=== PATIENT | male | born 1980 | race Caucasian/White ===

== ENCOUNTER 2021-04-19 11:16 | Emergency (ER) | payer OTHER, MEDICAID, SELFPAY ==
[2021-04-19] VITALS (48 sets, daily range): BP systolic 107–156; BP diastolic 55–89; PULSE 51–104; RESP 14–26; O2SAT 80–100
--- NOTE | 2021-04-19 11:29 | PC.NURSE ---
Attempted to take vitals on patient. Put CO2 monitor on patient to measure breathing.
--- NOTE | 2021-04-19 11:39 | ED_ITS ---
HPI - Overdose <Payton Leavitt - Last Filed: 04/23/21 02:33> General Chief Complaint: Toxicology Problem Stated Complaint: OD Time Seen by Provider: 04/19/21 11:34 Source: EMS Mode of arrival: EMS Limitations: no limitations History of Present Illness HPI Narrative: This is a 41-year-old male comes emergency department for overdose. Patient received Narcan in the field. We are working on the exact timing but spent least 30 minutes since it was administered. Patient is alert, he is currently oriented to who he is, the year and he is able to ambulate safely. Discussed with patient that he needs to stay here. He admits to Xanax and clonidine. He admitted to medics heroin. He received Narcan x2 and improved. He removed both IVs that the medics and placed EN route. Here he b ecame quite agitated and aggressive and violent with staff. Patient was able to ambulate out with clear speech after discussed multiple times that he needs to be watched for at least an hour to make sure the Narcan does not wear off and he dies. PD was contacted to assist. Patient was return to the department by EMS. He had made it across the street but no further. Patient is alert but quite confused. He continues to be quite agitated and aggressive Related Data Allergies Allergy/AdvReac Type Severity Reaction Status Date / Time No Known Drug Allergies Allergy Verified 04/19/21 11:28 Review of Systems <Payton Leavitt - Last Filed: 04/23/21 02:33> Review of Systems ROS Unobtainable: All systems reviewed & are unremarkable except as noted in HPI and below Patient History <Payton Njge - Last Filed: 04/23/21 02:33> Substance Use Type: marijuana, heroin and sedatives Exam <Payton Njge - Last Filed: 04/23/21 02:33> Narrative Exam Narrative: GENERAL: Alert and oriented to self, thin male in moderate distress. Patient is quite agitated and angry. HEENT: Head normocephalic, atraumatic, EOMI, pupils reactive, face symmetric, moist mucous membranes NECK: Supple, full range of motion CARDIOVASCULAR: Regular rate and rhythm without murmurs, rubs or gallops. RESPIRATORY: Breath sounds equal bilaterally, no wheezes rales or rhonchi. ABDOMEN: Soft, nontender. Normoactive bowel sounds all 4 quadrants. No gua rding or rebound, rigidity, no mass EXTREMITIES: Normal range of motion, no clubbing or edema. Neurovascularly intact. NEUROLOGICAL: Cranial nerves II through XII grossly intact. Moving all extrem ities. Patient has steady gait. SKIN: Warm, dry, no petechiae, no rashes or lesions. PSYCH: Patient does not admit to any wish to harm himself or . Initial Vital Signs Initial Vital Signs: Vital Signs Pulse Rate 88 04/19/21 11:20 Respiratory Rate 15 04/19/21 11:20 Blood Pressure 118/78 04/19/21 11:20 Pulse Oximetry 99 04/19/21 11:20 <Cholo Lowe DO - Last Filed: 04/20/21 01:58> Initial Vital Signs Initial Vital Signs: Vital Signs Pulse Rate 88 04/19/21 11:20 Respiratory Rate 15 04/19/21 11:20 Blood Pressure 118/78 04/19/21 11:20 Pulse Oximetry 99 04/19/21 11:20 Course <Payton Leavitt, - Last Filed: 04/23/21 02:33> Orders Ordered: Discontinued Medications Diphenhydramine HCl (Diphenhydramine 50 Mg/Ml Vial) 50 mg IM NOW ONE Stop: 04/19/21 12:04 Last Admin: 04/19/21 12:10 Dose: 50 mg Documented by: KENIA Haloperidol (Haloperidol 5 Mg/Ml Vial) 10 mg IM NOW ONE Stop: 04/19/21 12:04 Last Admin: 04/19/21 12:10 Dose: 10 mg Documented by: KENIA Haloperidol (Haloperidol 5 Mg/Ml Vial) 10 mg IM NOW ONE Stop: 04/19/21 13:33 Last Admin: 04/19/21 13:51 Dose: 10 mg Documented by: KENIA Ketamine HCl (Ketamine 500 Mg/5 Ml Inj) 200 mg IM NOW ONE Stop: 04/19/21 11:37 Last Admin: 04/19/21 12:31 Dose: Not Given Documented by: KENIA Ketamine HCl (Ketamine 500 Mg/5 Ml Inj) 200 mg IM NOW ONE Stop: 04/19/21 12:23 Last Admin: 04/19/21 12:32 Dose: 200 mg Documented by: KENIA Lorazepam (Lorazepam 2 Mg/Ml Inj) 2 mg IM NOW ONE Stop: 04/19/21 13:13 Last Admin: 04/19/21 13:26 Dose: 2 mg Documented by: YOEL Naloxone HCl (Naloxone 1 Mg/Ml Syringe) 0.4 mg IV PRN PRN PRN Reason: Opiate Reversal Vital Signs Vital signs: Vital Signs - 8 hr 04/19/21 18:00 04/19/21 18:15 04/19/21 18:30 Pulse Rate 57 L 59 L 57 L Respiratory Rate Blood Pressure 119/74 127/85 156/88 H Pulse Oximetry 100 100 100 04/19/21 18:45 04/19/21 19:00 04/19/21 19:15 Pulse Rate 55 L 62 64 Respiratory Rate 18 Blood Pressure 123/75 126/79 122/76 Pulse Oximetry 100 100 100 04/19/21 19:30 04/19/21 19:45 04/19/21 19:46 Pulse Rate 64 75 75 Respiratory Rate Blood Pressure 127/80 120/70 Pulse Oximetry 100 95 96 04/19/21 20:00 04/19/21 20:15 Pulse Rate 51 L 66 Respiratory Rate 16 Blood Pressure 109/55 L 113/63 Pulse Oximetry 100 98 <Cholo Lowe DO - Last Filed: 04/20/21 01:58> Orders Ordered: Discontinued Medications Diphenhydramine HCl (Diphenhydramine 50 Mg/Ml Vial) 50 mg IM NOW ONE Stop: 04/19/21 12:04 Last Admin: 04/19/21 12:10 Dose: 50 mg Documented by: KENIA Haloperidol (Haloperidol 5 Mg/Ml Vial) 10 mg IM NOW ONE Stop: 04/19/21 12:04 Last Admin: 04/19/21 12:10 Dose: 10 mg Documented by: KENIA Haloperidol (Haloperidol 5 Mg/Ml Vial) 10 mg IM NOW ONE Stop: 04/19/21 13:33 Last Admin: 04/19/21 13:51 Dose: 10 mg Documented by: KENIA Ketamine HCl (Ketamine 500 Mg/5 Ml Inj) 200 mg IM NOW ONE Stop: 04/19/21 11:37 Last Admin: 04/19/21 12:31 Dose: Not Given Documented by: KENIA Ketamine HCl (Ketamine 500 Mg/5 Ml Inj) 200 mg IM NOW ONE Stop: 04/19/21 12:23 Last Admin: 04/19/21 12:32 Dose: 200 mg Documented by: KENIA Lorazepam (Lorazepam 2 Mg/Ml Inj) 2 mg IM NOW ONE Stop: 04/19/21 13:13 Last Admin: 04/19/21 13:26 Dose: 2 mg Documented by: YOEL Naloxone HCl (Naloxone 1 Mg/Ml Syringe) 0.4 mg IV PRN PRN PRN Reason: Opiate Reversal Vital Signs Vital signs: Vital Signs - 8 hr 04/19/21 18:00 04/19/21 18:15 04/19/21 18:30 Pulse Rate 57 L 59 L 57 L Respiratory Rate Blood Pressure 119/74 127/85 156/88 H Pulse Oximetry 100 100 100 04/19/21 18:45 04/19/21 19:00 04/19/21 19:15 Pulse Rate 55 L 62 64 Respiratory Rate 18 Blood Pressure 123/75 126/79 122/76 Pulse Oximetry 100 100 100 04/19/21 19:30 04/19/21 19:45 04/19/21 19:46 Pulse Rate 64 75 75 Respiratory Rate Blood Pressure 127/80 120/70 Pulse Oximetry 100 95 96 04/19/21 20:00 04/19/21 20:15 Pulse Rate 51 L 66 Respiratory Rate 16 Blood Pressure 109/55 L 113/63 Pulse Oximetry 100 98 MDM - Overdose <Payton Leavitt DO - Last Filed: 04/23/21 02:33> Lab Data Labs: Lab Results 04/19/21 Range/Units 12:25 SARS-CoV-2 (PCR) Negative (Negative) MDM Narrative Medical decision making narrative: Upon return patient continues to be agitated similar to prior. He is oriented to self but is quite confused. After discussion with medics he is about the hour point where his Narcan would be wearing off the seems to be the case. Patient was given sedation, we are unable to obtain IV access so this was given in IM form for patient safety. Patient continued to by monitored in the department with stable vitals. He began to awaken and re-evaluated after some time to metabolize. Patient signed out to Dr. Lowe, patient is awakening but still quite sleepy. <Cholo Lowe DO - Last Filed: 04/20/21 01:58> Lab Data Labs: Lab Results 04/19/21 Range/Units 12:25 SARS-CoV-2 (PCR) Negative (Negative) MDM Narrative Medical decision making narrative: Upon return patient continues to be agitated similar to prior. He is oriented to self but is quite confused. After discussion with medics he is about the hour point where his Narcan would be wearing off the seems to be the case. Patient was given sedation, we are unable to obtain IV access so this was given in IM form for patient safety. Patient continued to by monitored in the department with stable vitals. He began to awaken and re-evaluated after some time to metabolize. Patient signed out to Dr. Lowe, patient is awakening but still quite sleepy. Dr lowe: Received turned over. Reviewed patient's labs. Patient has been stable and calm. He did wake up. Was conversive. Is able to the stand and ambulate. Would like to be discharged home. Discharge Plan Departure Patient Disposition: Home Clinical Impression: Overdose Instructions: Substance Use Disorder Activity Restrictions/Additional Instructions: You were seen today for overdose. I do recommend you seek assistance for drug use. If you are interested you can call to discuss options with the ER oncology social worker in the future at [phone]. If you feel you need to go to [facility]. Call had of time ([phone]) to inquire about an available bed. If there are no beds called daily and 9 AM and 9 PM to check on bed availability. If you're feeling suicidal or having suicidal thoughts, contact the suicide hotline (this number is also for counseling and self referral for assistance through [facility]). . Please return if you are having new or worsening symptoms, chest pain, shortness of breath, persistent vomiting, lightheadedness or passing out or other new or concerning symptoms.
--- NOTE | 2021-04-19 11:41 | PC.NURSE ---
Attempting to place patient on monitor, more agitated, threatening staff w/ violence. Thought he was in [place] but knows date, day of the week and person. States he is leaving. Unable to keep in bed. Again threatening violence to staff. I'll fuck you up. Pt stood out of bed. Steady on feet, walked out continuing to threaten staff w/ violoence you fucking bitch- You have no idea who you are dealing with- I'll fucking go after you. Walked out of ambulance bay. Steady gait, easy work of breathing, pink/warm/dry. Pt continually stating he did not take heroin but took xanax. [place] [employer] made aware. Reached out to [facility] to see when he got Narcan dose.
--- NOTE | 2021-04-19 11:48 | PC.NURSE ---
Return call from [facility], narcmary given [id number]. Dr. Leavitt aware
--- NOTE | 2021-04-19 11:51 | PC.NURSE ---
sweatshirt w/o any other belongings sent to lost and found.
--- NOTE | 2021-04-19 11:53 | PC.NURSE ---
During his short stay, pt stated that he took xanax and got fucked up. Denied heroin use. Denies intentional overdose. Denies SI/HI I'm not that fucking stupid.
--- NOTE | 2021-04-19 12:04 | PC.NURSE ---
EMS called for pt. Returning to ED.
[2021-04-19] MEDS: diphenhydrAMINE 50 MG/ML VIAL IM (12:10)
[2021-04-19] MEDS: HALOPERIDOL 5 MG/ML VIAL 10 MG IM ×2 (12:10→13:51)
--- NOTE | 2021-04-19 12:26 | PC.NURSE ---
@ 1210 returned via EMS to room 1. Pt found across [address], breathing 12-14, pink/warm/dry but confused to time/place/person. Arrived combative. Medicated w/ haldol and benedryl IM before moving from EMS stretcher, pt continued to be combative, threatening and not following directions. Dr. Dagmar landers and pt placed in 4 pt restraints for pt and staff safety. Currently continuing to thrash in restraints but not hurting himself against them. Mumbling to self.
[2021-04-19] MEDS: KETAMINE 500 MG/5 ML INJ 200 MG IM (12:32)
--- NOTE | 2021-04-19 12:36 | PC.NURSE ---
Pt continues to thrash, yell, threatening to staff. Dr. Leavitt re-evaluate, ordered Ketamine 200 mg IM. Given left thigh. Continues in 4 pt restraints for pt/ staff stafety. 1;1 present.
[2021-04-19] MEDS: LORazepam 2 MG/ML INJ IM (13:26)
[2021-04-19 13:28] LABS: COVID19 -Nasal RAPID Negative (Negative)
--- NOTE | 2021-04-19 14:20 | PC.NURSE ---
See paper charting for q 15 min checks.
--- NOTE | 2021-04-19 14:39 | PC.NURSE ---
Pt falls asleep for a few minutes at a time then wakes to thrashing all 4 limbs, reaches for staff when in reach, yells, disoriented, threat to himself and others, not re-directable. multiple attempts at IV access however pt has significant scaring in arms, hands. Dr. Leavitt aware. Attempt to void, unable at this time.
--- NOTE | 2021-04-19 14:41 | PC.NURSE ---
RN attempted to place IV had a failed atempt, PT said he has to void a urinal was placed, PT was unable to void.
--- NOTE | 2021-04-19 15:13 | PC.NURSE ---
bilateral lower extremity locked restraints removed. Pt is currently sleeping. Easily aroused. + CSM. Easy work of breathing.
--- NOTE | 2021-04-19 15:13 | PC.NURSE ---
1246: PT mumbling and looking at restraints 1251: PT trying to get out of bed mumbling unrecognizable words. 1259: PT boosted in bed with the help of another PUDDLER HELPER to a 30 degree angle to help sliding out of bed. 1300: PT thrashing feet and hands while mumbling. 1310: Broke BP cuff because of thrashing upper body. New BP cuff placed. 1313: Sitting straight up restraints intact no physical harm to self attempting to get out of bed while thrashing legs mumbling incomplete sentences. 1315: Pt recieved medication and becan to scream FUCK and mumbling incomplete sentences, Began to doze but is refusing to fall asleep. 1328: Restraints intact, thrashing upper and lower body trying to exit out of bed. 1334: keeps trying to put hands down his pants, when I saked what he was trying to do he stated that I have an itch PT had a tenancy to grab own genitalia when not restraint. 1402: Falling asleep after receiving another dose of medication, sleeps for 4 seconds then begins to thrash again. 1417: PT sleeping, Calm, laying down, Quiet. 1438: RN attempted to place x2 IV's but failed due to Pt thrashing. PT needed to be held down by 2 PUDDLER HELPER's and 1 RN while another RN attempted to place and IV for Fluid and lab draw. 1445: PT back asleep, Quiet, Laying down, Restraints intact. 1510 RN removed foot restraints while PT is still sleeping. 1523 Pt streched legs but stayed asleep. 1535: Pt still asleep Quiet, Laying on back arm restraints still intact.
--- NOTE | 2021-04-19 16:25 | PC.NURSE ---
bilateral arm restraints removed 162
--- NOTE | 2021-04-19 17:35 | CM.SWNOTE ---
LEGAL ACTIVITY ADJUDICATOR Note LEGAL ACTIVITY ADJUDICATOR receives consult. Patient is 41 y/o male who presents to this ED via EMS after overdose of reported substances of heroin and xanax. Patient receives narcan in the field prior to arrival to ED. Patient leaves AMA, and returns to ED via EMS. Patient conducts self as confrontational, aggressive and making threats towards ED staff. Patient is provided medications and eventually falls asleep. LEGAL ACTIVITY ADJUDICATOR will not wake patient for assessment. Per patient's earlier report to ED staff, patient denies heroin use. Plan: LEGAL ACTIVITY ADJUDICATOR to f/u with [facility] upon further ED provider assessment for patient. KAILYN Tapia
== END 2021-04-19 20:42 | disposition home or self-care (01) ==
PROVIDERS: Emergency Medicine; Emergency Provider Emergency Medicine
DX: T50.7X1A Poisoning by analeptics and opioid receptor antagonists, accidental (unintentional), initial encounter (principal); R41.0 Disorientation, unspecified; Z20.822 Contact with and (suspected) exposure to COVID-19
CPT/HCPCS: 87635; 96372; 99285; C9803; J1200; J1630; J2060